=== PATIENT | male | born 1970 | race Caucasian/White ===

== ENCOUNTER 2017-04-14 19:06 | Emergency (ER) | payer OTHER, BC ==
[2017-04-14 19:10] VITALS: BP 158/91; PULSE 90; TEMP 98.5; BMI 34.7
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
[2017-04-14] MEDS ORDERED: RIVAROXABAN 15 MG TABLET PO ONE (22:13)
[2017-04-14 22:24] LABS: EOS % 4.2 % (0-4.5); HEMATOCRIT 40.6 % (35.4-49); HEMOGLOBIN 13.7 GM/dl (11.7-16.9); LYMPH % 37.7 % (8-40); MCH 30.5 pg (25.7-33.7); MCHC 33.7 g/dl (32.0-35.9); MEAN CELL VOLUME 90.3 fl (80-96); MEAN PLT VOLUME 7.5 fl (7.5-11.1); MONO % 6.9 % (3.8-10.2); NEUT % 50.2 % (42.8-82.8); PLATELET COUNT 237 K/MM3 (134-434); RDW 12.2 % (11.9-15.9); WHITE BLOOD COUNT 7.6 K/mm3 (4.0-10.8)
[2017-04-14 22:27] LABS: ACTIVATED PTT 29.4 SECONDS (24.0-38.9)
[2017-04-14 22:29] LABS: ALBUMIN 3.4 g/dl (3.5-5.0); ALK PHOS 82 U/L (32-92); ANION GAP 2 (8-16); BILIRUBIN,TOTAL 1.3 mg/dl (0.2-1.0); BLOOD UREA NITROGEN 13 mg/dl (7-18); CALCIUM 8.9 mg/dl (8.4-10.2); CHLORIDE 106 mmol/L (98-107); CO2 27 mmol/L (22-28); GLUCOSE,RANDOM 101 mg/dl (74-106); SGOT/AST 28 U/L (10-42); SGPT/ALT 23 U/L (10-40); SODIUM 135 mmol/L (136-145)
[2017-04-14 22:31] LABS: INR 1.07 (0.82-1.09); POTASSIUM 5.1 mmol/L (3.5-5.1)
== END 2017-04-14 23:16 | disposition home or self-care (01) ==
LOC: FER 19:06
DX: I82.402 Acute embolism and thrombosis of unspecified deep veins of left lower extremity (principal); I10 Essential (primary) hypertension; E78.00 Pure hypercholesterolemia, unspecified; Z79.01 Long term (current) use of anticoagulants
CPT/HCPCS: 36415; 80053; 85025; 85610; 85730; 93971-TC; 99282-25